=== PATIENT | male | born 1975 | race Caucasian/White ===

== ENCOUNTER 2016-07-26 11:07 | Emergency (ER) | payer OTHER ==
[~2016-07-26] VITALS: Ht 180.3 cm; Wt 94.7 kg
[2016-07-26 11:08] VITALS: TEMP 36.7; Ht 180.3 cm; Wt 94.7 kg
[2016-07-26] MEDS ORDERED: MTR800 PO (11:15)
[2016-07-26] MEDS ORDERED: OXYCODONE/ACETAMINOPHEN 5-325 TAB PO STA (11:28)
--- NOTE | 2016-07-26 11:41 | EMERGENCY ROOM VISIT NOTE ---
History First contact with patient: 11:19 Chief Complaint: KNEEPAIN Stated Complaint: RIGHT KNEE History of Present Illness The patient is a 41 year old male who presents to the Emergency Room via private vehicle with complaints of "right knee". The patient states that earlier this morning around 6:30 AM he was playing basketball when his right knee spontaneously gave out on him and buckled. He points to the right lateral anterior portion of the right knee as a location of the pain of which she rates a 7/10. There is pain with full extension of the knee. He has taken 800 mg of ibuprofen with minimal relief of his pain. He notes that he does have an extensive history of knee injuries on the left but not the right. He denies any right ankle or hip pain. He admits to minimal numbness specifically located in the right knee region. He denies any back pain. He did not injure any other areas when he fell. He denies any other pain. Review of Systems A complete 6-point Review of Systems was discussed with the patient, with pertinent positives and negatives listed in the History of Present Illness. All remaining Review of Systems questions can be considered negative unless otherwise specified. Past Medical/Surgical History Tonsillectomy at age 7, left anterior cruciate ligament reconstructive surgery 2007. Family History Diabetes, heart disease, high blood pressure, kidney disease or stones. Social History Smoking Status: Never Smoker Social History: Patient lives at home with family, and denies alcohol and tobacco use. Current/Historical Medications Scheduled PRN Ibuprofen (Ibuprofen), 800 MG PO DAILY PRN for Pain Oxycodone/Acetaminophen 5MG/325MG (Percocet 5MG/325MG), 1 TAB PO Q6 PRN for Pain Oxycodone/Acetaminophen 5MG/325MG (Percocet 5MG/325MG), 1 TAB PO Q6 PRN for Pain Allergies Coded Allergies: No Known Allergies (Unverified , 07/26/16) Physical Exam Vital Signs Date Time Temp Pulse Resp B/P Pulse Ox O2 Delivery O2 Flow Rate FiO2 07/26/16 13:17 62 18 131/71 97 07/26/16 11:08 36.7 65 18 142/82 96 Room Air Physical Exam VITAL SIGNS - Vital signs and nursing notes were reviewed. Patient is afebrile , blood pressure 142/82, he is not tachycardic and is saturating well on room air 96%. GENERAL -41-year-old male appearing his stated age who is in no acute distress. He is nontoxic in appearance. Communicates well with provider and answers questions appropriately. SKIN - Without rashes. The skin is intact over the right knee. HEAD - NC/AT. EXTREMITIES - No clubbing or peripheral cyanosis. No pretibial edema present. Neurovascularly intact in the right lower extremity. Negative anterior drawer. Negative Grgeg. There is no excessive varus or valgus laxity. There is increased tenderness with full extension of the knee with pinpoint tenderness with extension at the right anterior lateral knee region. Patella is intact and is tracking well. There is no popliteal tenderness. There is no right hip , right thigh, right calf or right toe/foot tenderness. +5/5 strength noted in UE/LE bilaterally. Medical Decision & Procedures ER Provider Diagnostic Interpretation: RIGHT KNEE 3 VIEWS HISTORY: Right knee pain s/p "buckled" while playing sports Right COMPARISON: None. FINDINGS: There is no fracture or dislocation. Small knee effusion. Chronic fragmentation at the tibial tubercle. Cartilage spaces are maintained. IMPRESSION: Small knee effusion. No fractures. Electronically signed by: Winston Dave M.D. 07/26/2016 12:18 PM Dictated Date/Time: 07/26/2016 12:17 PM Medications Administered Medications (Trade) Dose Ordered Sig/Tammi Route Start Time Stop Time Status Last Admin Dose Admin Oxycodone/ Acetaminophen (Percocet 5-325mg Tab) 1 tab NOW STAT PO 07/26/16 11:28 07/26/16 11:30 DC 07/26/16 11:33 1 TAB Medical Decision Patient was seen and evaluated as above. After obtaining a thorough history and physical examination there was concern for right knee injury therefore knee 3 view was obtained the patient was given one tablet of Percocet for his pain after verifying that he would not be driving home. Ice packs were applied. Radiographs were obtained with results as above. I agree with the radiologists findings. Small knee effusion no fracture. He was fitted with a knee immobilizer and crutches and instructed upon use. He is to follow-up with orthopedics by calling the phone number listed. He was written a prescription for Percocet which was sent to [facility], but while the patient was here [facility] called him and told him they did not accept his insurance which was [employer]. I then canceled that prescription by calling [facility] and it was decided to send to the [facility] in [place]. The patient had good fit of the knee mobilizer crutches. I do believe he can follow-up in the outpatient setting with orthopedics. The discussion was had whether or not an MRI should be obtained here and I did not feel that it is warranted in the ER at this time but certainly may be warranted in the outpatient setting with orthopedics. He was educated upon management of the knee. He had questions answered prior to discharge and was discharged home in good condition. After the patient had left, I then received a phone call from the [facility] in [place] who indicated that the prescription did not meet JOSEFA requirements but was unsure why. I then called to cancel this and then handwritten prescription by this point the patient had left. I called him and he was in the nearby facility at the orthopedic office and he indicated that he would stop to pick the prescription up. 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 The 2 electronic prescription's were canceled and he is to take a handwritten prescription. In the evaluation and treatment of this patient, the following differential diagnoses were considered: Patellar Fracture, Tibial Plateau Fracture, Distal Femur Fracture, ACL Injury, PCL Injury, Collateral Ligament Injury, Pes Anserine Bursitis, Maisonneuve Fracture. [place] Drug Monitoring Program Search Results: patient reviewed within database, no issues identified Impression Primary Impression: Right knee pain Departure Information Dispostion Home / Self-Care Condition GOOD Prescriptions Oxycodone/Acetaminophen 5MG/325MG (PERCOCET 5MG/325MG) Tab 1 TAB PO Q6 Y for Pain, #12 TAB For Initial Treatment Prov: Efrain Jain PA-C 07/26/16 Oxycodone/Acetaminophen 5MG/325MG (PERCOCET 5MG/325MG) Tab 1 TAB PO Q6 Y for Pain, #12 TAB For Initial Treatment Prov: Efrain Jain PA-C 07/26/16 Referrals No Doctor, Assigned (PCP) Remy Lynn MD Patient Instructions My [facility] Additional Instructions You have been treated in the Emergency Department for Knee Pain. You have received pain medicine in the emergency department which impairs your ability to operate a vehicle. It is illegal for you to drive after receiving these medicines. You have been prescribed Percocet to be used for pain control. This is a narcotic medication. You cannot drive or consume alcohol while on this medicine. This medicine should only be used for pain that cannot be controlled with exhp-qrv-wskwzvy pain medicines. For pain control, you can use the following sfoc-ctw-xxucyis medicines (if >12 yo): PLEASE DO NOT TAKE TYLENOL WITH THIS! IT ALREADY HAS TYLENOL IN IT! - Regular strength (200 mg/tab) Advil (ibuprofen) 1-2 tabs every 4-6 hours as needed. Do not exceed a dose of 3200 mg per day. If this is a recent injury (<24 hrs), ice can be applied to the area of pain for the first 3 days to help decrease pain and inflammation. Ice massages can be performed by freezing water in a paper cup, peeling back the cup to expose the ice and then massaging over the affected area. You have been provided the number for an Orthopaedic Surgeon. You should call this number as soon as possible to establish a follow-up visit from today's Emergency Department visit. Keep the knee brace in place until cleared by Orthopedics. Use the crutches you have been provided to keep ALL weight off of the knee until weight bearing is tolerable. Return to the Emergency Department if your current symptoms worsen despite treatment course outlined above. CALL [phone] if you are unable to make an appointment and ask for a lining caser. Thank you! Problem Qualifiers Primary Impression: Right knee pain Chronicity: acute Qualified Codes: M25.561 - Pain in right knee
--- NOTE | 2016-07-26 12:20 | DIAGNOSTIC IMAGING REPORT ---
RIGHT KNEE 3 VIEWS HISTORY: Right knee pain s/p "buckled" while playing sports Right COMPARISON: None. FINDINGS: There is no fracture or dislocation. Small knee effusion. Chronic fragmentation at the tibial tubercle. Cartilage spaces are maintained. IMPRESSION: Small knee effusion. No fractures. Electronically signed by: Winston Dave M.D. 07/26/2016 12:18 PM Dictated Date/Time: 07/26/2016 12:17 PM
[2016-07-26] MEDS ORDERED: OXYC-57 PO ×2 (12:43→13:10)
[2016-07-26 13:17] VITALS: BP 131/71; PULSE 62; O2SAT 97
[2016-08-07] MEDS ORDERED: OXYC-57 PO (13:03)
[2016-08-07] MEDS ORDERED: NAPR1TAB9 PO (13:03)
[2016-08-16] MEDS ORDERED: OXYC-57 PO (11:44)
[2016-08-16] MEDS ORDERED: ASPI325T45 PO (11:46)
== END 2016-07-26 13:16 | disposition home or self-care (01) ==
LOC: C.EDB 11:09 → C.EDD 13:16
DX: M25.561 Pain in right knee (principal); W19.XXXA Unspecified fall, initial encounter; Y93.67 Activity, basketball

== ENCOUNTER → 2016-07-31 | Outpatient (CLI) | payer OTHER ==
[~2016-07-31] MED LIST: ASPI325T45 PO; MTR800 PO; NAPR1TAB9 PO; OXYC-57 PO
--- NOTE | 2016-07-31 18:25 | DIAGNOSTIC IMAGING REPORT ---
MRI OF THE RIGHT KNEE CLINICAL HISTORY: Right knee injury. COMPARISON STUDY: Right aggressive the right knee dated 07/26/2016. TECHNIQUE: MRI of the right knee was performed utilizing proton density, T1, and T2-weighted sequences in the axial, sagittal, coronal planes. IV contrast was not administered for this examination. FINDINGS: Menisci: There is an oblique tear identified in the posterior horn of the medial meniscus. The lateral meniscus appears intact. Ligaments: Findings consistent with rupture of the anterior cruciate ligament. The posterior cruciate ligament appears intact. The medial and lateral collateral ligaments appear intact. The popliteus tendon appears preserved. Extensor mechanism: The extensor mechanism is intact. Hoffa's fat pad is normal in appearance. Articular cartilage and bone: The articular cartilage is intact and well maintained all 3 compartments. Bony contusion is identified within the posterior aspect of the medial and lateral tibial plateau. No fracture is identified. Joint effusion: There is a large joint effusion. Soft tissues: Mild intramuscular edema is seen within the vastus lateralis muscle. There is soft tissue edema involving the superficial and deep soft tissues the knee, greatest laterally. The musculature surrounding the knee joint is normal in bulk. IMPRESSION: 1. Findings are consistent with rupture of the anterior cruciate ligament. 2. There is an oblique tear involving the posterior horn of the medial meniscus. 3. The lateral meniscus and posterior cruciate ligament are intact, as are the collateral ligaments and the popliteus tendon. 4. Large joint effusion. 5. Bony contusions are identified in the posterior tibia as above. 6. There is marked soft tissue edema involving the superficial and deep soft tissues of the knee, greatest laterally. Electronically signed by: Clif Nelson M.D. 07/31/2016 6:23 PM Dictated Date/Time: 07/31/2016 6:14 PM
== END | disposition home or self-care (01) ==
LOC: C.MRI 17:21
PROVIDERS: ATTEND Family Medicine
DX: M23.91 Unspecified internal derangement of right knee (principal)

== ENCOUNTER → 2016-08-16 | Day surgery (SDC) | payer OTHER ==
[2016-08-07 13:03] VITALS: Ht 180.3 cm; Wt 95.5 kg
[~2016-08-16] VITALS: Ht 180.3 cm; Wt 95.5 kg
[~2016-08-16] MED LIST changes: +ATROPINE SULFATE 0.1 MG/ML 5ML SYR IV PRN; +BUPIVACAINE 0.5 % 5 MG/1 ML MPF 30ML VIAL ONE; +CEFAZOLIN 2000 MG/60 ML D5W IV SCH; +CEFAZOLIN SOD 1 GM VIAL IV ONE; +CEFAZOLIN SOD 1 GM VIAL ONE; +DEXAMETHASONE SOD INJ 4 MG/ML VIAL ONE; +EpHEDrine SULFATE INJ 50 MG/ML AMP IV PRN; +EpINEphrine INJ 1MG/ML AMP 1 MG/ML AMP ONE; +FENTANYL CITRATE INJ 50 MCG/1 ML 2 ML VIAL ONE; +FLUMAZENIL 0.1 MG/1 ML 10 ML VIAL IV PRN; +GLYCOPYRROLATE INJ 0.2 MG/ML VIAL ONE; +KETOROLAC TROMETHAMINE 30 MG/ML VIAL IV STA; +KETOROLAC TROMETHAMINE 30 MG/ML VIAL ONE; +LABETALOL HCL IV 5 MG/ML 20ML IV PRN; +LACTATED RINGER'S 1000ML 1,000 ML IV SCH; +LIDOCAINE HCL 2% 2 ML VIAL (20MG/ML) ONE; +LIDOCAINE/EPINEPHRINE 1% INJ 50 ML VIAL ONE; +MIDAZOLAM HCL 1 MG/ML 2ML VIAL ONE; -MTR800 PO; +MoRPHine SULFATE 2 MG/ML CARP IV PRN; +MoRPHine SULFATE 4 MG/ML 1 ML CARP\\VIAL IV PRN; +NALOXONE HCL 0.4 MG/1 ML VIAL/CARP IV PRN; +NEOSTIGMINE METHYLSULFATE 5 MG/5 ML SYR ONE; +ONDANSETRON INJ 2 MG/ML 2 ML VIAL IV PRN; +ONDANSETRON INJ 2 MG/ML 2 ML VIAL ONE; +OXYCODONE/ACETAMINOPHEN 5-325 TAB PO PRN; +PROMETHAZINE HCL INJ 12.5 MG in SODIUM CHLORIDE 0.9% 50ML 50 ML IV PRN; +PROPOFOL IV EMULSION 10 MG/ML 20 ML VIAL IV ONE; +ROCURONIUM BROMIDE 10 MG/ML 5 ML VIAL ONE; +ROPIVACAINE 0.5% 5 MG/ML 30 ML VIAL ONE; +SODIUM CHLORIDE 0.9% 1000ML 1,000 ML IV SCH; +SODIUM CHLORIDE 0.9% INJ 10 ML VIAL ONE
--- NOTE | 2016-08-16 06:38 | History & Physical Bridge Note ---
H&P Re-Evaluation Bridge Note: I have examined the patient, reviewed the History & Physical and in the interval since the performance of the History & Physical I have noted the following changes of clinical significance: No changes noted
--- NOTE | 2016-08-16 11:22 | [facility] Post Operative Brief Note ---
Immediate Operative Summary Operative Date Aug 16, 2016. Pre-Operative Diagnosis Right Knee Anterior Cruciate Ligament Tear, Medial Meniscus Tear Post-Operative Diagnosis Same, lateral meniscus tear Procedure(s) Performed Right Knee Arthroscopy, Partial Medial Menisectomy, Partial Lateral Menisectomy , Anterior Cruciate Reconstruction using Hamstring Autograft Surgeon Dr. Loy Barnett Scientific Database Curator Surgeon(s) Jn Fulton PA-C, chandana jason, ms3 Estimated Blood Loss 25 cc Findings medial and lateral meniscus tears, ACL tear Specimens None Anesthesia LMA femoral block Complication(s) None Disposition Recovery Room / PACU
--- NOTE | 2016-08-16 11:42 | [facility] Operative Report ---
Operative Report Operative Date Aug 16, 2016. Pre-Operative Diagnosis Right Knee Anterior Cruciate Ligament Tear, Medial Meniscus Tear Post-Operative Diagnosis Same, lateral meniscus tear Procedure(s) Performed Right Knee Arthroscopy, Partial Medial Menisectomy, Partial Lateral Menisectomy , Anterior Cruciate Reconstruction using Hamstring Autograft Surgeon Dr. Loy Barnett Clay Modeler Surgeon(s) Jn Fulton PA-C, chandana jason, ms3 Estimated Blood Loss 25 cc Findings N/A Specimens None Complication(s) None Disposition Recovery Room / PACU I attest to the content of the Intraoperative Record and any orders documented therein. Any exceptions are noted below.
--- NOTE | 2016-08-16 11:49 | Medical Student: [facility] ---
Immediate Operative Summary Operative Date Aug 16, 2016. Pre-Operative Diagnosis ACL Tear with Possible Medial Meniscal Tear Post-Operative Diagnosis ACL Tear with partial tears of medial and lateral meniscus Procedure(s) Performed ACL repair autograft with hamstring tendons. Partial medial and lateral meniscectomy Surgeon Dr. Barnett Technical Designer Surgeon(s) WILMAR Fulton PA-C Estimated Blood Loss 50cc Findings Complete ACL tear. Partial full thickness tear of medial meniscus. Partial thickness tear of lateral meniscus. Specimens None Complication(s) None Disposition Recovery Room / PACU
--- NOTE | 2016-08-16 11:50 | Discharge Instructions ---
Discharge Instructions Admission Reason for Admission: Right Knee Acl Tear, Medial Meniscus Tear Discharge Discharge Diagnosis / Problem: Right ACL tear, Medial meniscus tear; Lateral meniscus tear Discharge Goals Goal(s): Decrease discomfort, Improve function, Increase independence Activity Recommendations Activity Limitations: as noted below Lifting Limitations: until after follow-up appointment Exercise/Sports Limitations: none May Resume Sexual Activity: after follow-up appointment Shower/Bathe: tomorrow, keep incision dry Driving or Machine Use: No driving until cleared by access control specialist Weightbearing Status: Right non-weightbearing . Instructions / Follow-Up Instructions / Follow-Up The following instructions are a useful guide to questions you may have after your Anterior Cruciate Ligament Reconstruction surgery. If you have any questions contact the office at . ACTIVITY RECOMMENDATIONS: * Heavy manual labor is not permitted until 4-6 months after surgery. * Sports are not permitted until 6-9 months after surgery. * Return to activity is individualized. * DRIVING: Driving is not permitted until 3-4 weeks after surgery at a minimum. Please ask your doctor when it is safe to resume driving. If you have an automatic vehicle and your left leg has been operated on, then you may begin driving as soon as you are comfortable and can drive safely. * BATHING: You may shower or sponge-bathe immediately after surgery. The dressing will need to be covered with a plastic bag or plastic wrap until the dressing is changed on the fourth or fifth day after surgery. Once the dressing has been changed on the fourth or fifth day after surgery, you may shower and get the incision wet. * Wash with regular soap and water. * Do not bathe (submerge the incision), soak, swim or use a hot tub until the incision is completely healed over with normal skin and the doctor has given the OK to proceed. * There is no need to apply any ointments, powders or salves to your incision. * Do not apply alcohol or hydrogen peroxide directly to the incision. Diluted peroxide (50:50 mixture with sterile saline) may be used to clean dried blood from around the incision area. WORK/SCHOOL: * You may return to sedentary work or school when you are feeling comfortable. This is usually 3-7 days after surgery. * Expect increased discomfort with increased activity. Continue to elevate and ice the leg as much as possible. DIET: * Resume previous diet. MEDICATIONS: * You will have a prescription for pain medication and an anti-inflammatory medication after surgery. Use the pain pills for severe pain and the anti-inflammatory for less severe pain. * Once the pain pills have run out, try to use the anti-inflammatory. If this is not effective then contact the office for assistance. * The pain medication may cause nausea, constipation and sleepiness. You should see how they affect you before driving or similar activity. * The anti-inflammatory may cause stomach upset and bleeding. If this occurs, let your doctor know immediately . * Some patients may need blood clot prevention. This can be done with either a pill or a simple shot. Your doctor will advise you on when to begin these medications and how to take them. * Do not take aspirin or other anti-inflammatory products (i.e. Advil or Aleve ) if taking blood thinner medication. * Take a stool softener like Colace or a stimulant like Senokot to prevent constipation. SPECIAL CARE INSTRUCTIONS: The following instructions are a useful guide to questions you may have after your surgery. If you have any questions contact the office at . ICE: * You have the option of an ice cooler, gel packs or ice bags. * If you have an ice cooler, refer to the instructions for that device. * If you do not have an ice cooler, then you will need to use ice bags or gel packs. * Do not apply ice directly to the skin. * Use a thin dressing or stockinet between the skin and ice bag. * Apply ice for 20-30 minutes and repeat every 2-4 hours. This is especially important for the first 7-10 days after surgery. * Once the pain improves, use ice as needed. * The ice cooler can be used continuously. ELEVATION: * Keep your leg elevated at or above the level of your heart as much as possible. * Expect some increased discomfort and swelling if you are standing for any length of time. * When lying down, avoid placing anything under your knee. Rather, prop your leg up by placing several pillows under your heel or calf. DRESSING: * Your dressing will be changed at your first therapy appointment approximately 4-5 days after surgery. * Band-Aids, tape strips or gauze may be applied. You may then change your dressing daily. * Always wash your hands prior to touching the incision area. * Reapply dressing followed by the Eloy wrap or Tubi-coordinator mining products stockinet, ice cooling pad and then the brace. * Once the stitches are removed, you may leave the wound open to air or cover with an Eloy Bandage or Tubi-coordinator mining products stockinet. * If you have been given a white elastic stocking (SNEHA hose), wear as much as possible for the first 1-3 weeks depending on swelling. * Expect some bloody drainage for the first few days after surgery. * Leave the tape strips in place for 5-7 days. * Band-Aids and gauze may be changed daily. CRUTCHES: * You will need to use crutches after surgery. * Until your first doctor's appointment, you must use your crutches at all times when walking and should put no more than 50% of your normal weight on the surgical leg. * After your first doctor's appointment, you may gradually progress to full weight bearing and discontinue crutches as tolerated under the guidance of your therapist. * If you have had a microfracture procedure done, you may be advised to be non- weight bearing for up to 6 weeks. BRACE: * After surgery, you will be placed into a range of motion brace locked with your leg straight. This brace is to be worn at all times when walking (even with the crutches) and sleeping until your first doctors appointment. * The brace may be removed for therapy. * After your first therapy appointment, your therapist will open the brace to allow bending of the knee once your muscles are working better. * Until your first doctor's appointment, you should sleep with your brace locked with your knee fully straight. * If you have chosen to use a functional ACL brace then this brace will be supplied about 2-3 months after your surgery. During that time, you will attend therapy 2- 3 times per week. You will also need to do daily exercises for range of motion and strength as instructed. PROBLEMS/QUESTIONS: * If you have any problems such as severe pain, numbness, tingling or high fevers or if you have any questions, please contact the office at [phone]. * It is not uncommon to have some numbness and tingling after the surgery especially if you have had a nerve block done. This should gradually improve over the first 1- 2 days. If this persists longer or worsens then contact the office. FOLLOW UP VISIT: * If not already scheduled, please call the office at to schedule follow-up appointments for approximately 10 days and one month after surgery followed by monthly appointments thereafter. Current Hospital Diet Patient's current hospital diet: Discharge Diet Recommended Diet: Regular Diet Procedures Procedures Performed: Right Knee Arthroscopy, Partial Medial Menisectomy, Partial Lateral Menisectomy , Anterior Cruciate Reconstruction using Hamstring Autograft Pending Studies Studies pending at discharge: no Medical Emergencies . Who to Call and When: Medical Emergencies: If at any time you feel your situation is an emergency, please call 911 immediately. . Non-Emergent Contact Non-Emergency issues call your: Primary Care Provider Call Non-Emergent contact if: temperature is above 101.5, your pain is not controlled, wound has increased drainage, you have any medication questions . "Provider Documentation" section prepared by Reyes Fulton. VTE Core Measure Inpt VTE Proph given/why not?: Other Anticoagulation (Aspirin 325 mg), T.E.DElinor Ybarra [place] Drug Monitoring Program Search Results: no issues identified
--- NOTE | 2016-08-16 11:53 | Discharge Instructions ---
Discharge Instructions Admission Reason for Admission: Right Knee Acl Tear, Medial Meniscus Tear Discharge Discharge Diagnosis / Problem: Right ACL tear, medial meniscus tear, lateral meniscus tear Discharge Goals Goal(s): Decrease discomfort, Improve function, Increase independence Activity Recommendations Activity Limitations: as noted below Lifting Limitations: until after follow-up appointment Exercise/Sports Limitations: until after follow-up appointment May Resume Sexual Activity: after follow-up appointment Shower/Bathe: tomorrow, keep incision dry Driving or Machine Use: No driving until cleared by orthopaedic specialist Weightbearing Status: Right non-weightbearing . Instructions / Follow-Up Instructions / Follow-Up The following instructions are a useful guide to questions you may have after your Anterior Cruciate Ligament Reconstruction surgery. If you have any questions contact the office at . ACTIVITY RECOMMENDATIONS: * Heavy manual labor is not permitted until 4-6 months after surgery. * Sports are not permitted until 6-9 months after surgery. * Return to activity is individualized. * DRIVING: Driving is not permitted until 3-4 weeks after surgery at a minimum. Please ask your doctor when it is safe to resume driving. If you have an automatic vehicle and your left leg has been operated on, then you may begin driving as soon as you are comfortable and can drive safely. * BATHING: You may shower or sponge-bathe immediately after surgery. The dressing will need to be covered with a plastic bag or plastic wrap until the dressing is changed on the fourth or fifth day after surgery. Once the dressing has been changed on the fourth or fifth day after surgery, you may shower and get the incision wet. * Wash with regular soap and water. * Do not bathe (submerge the incision), soak, swim or use a hot tub until the incision is completely healed over with normal skin and the doctor has given the OK to proceed. * There is no need to apply any ointments, powders or salves to your incision. * Do not apply alcohol or hydrogen peroxide directly to the incision. Diluted peroxide (50:50 mixture with sterile saline) may be used to clean dried blood from around the incision area. WORK/SCHOOL: * You may return to sedentary work or school when you are feeling comfortable. This is usually 3-7 days after surgery. * Expect increased discomfort with increased activity. Continue to elevate and ice the leg as much as possible. DIET: * Resume previous diet. MEDICATIONS: * You will have a prescription for pain medication and an anti-inflammatory medication after surgery. Use the pain pills for severe pain and the anti-inflammatory for less severe pain. * Once the pain pills have run out, try to use the anti-inflammatory. If this is not effective then contact the office for assistance. * The pain medication may cause nausea, constipation and sleepiness. You should see how they affect you before driving or similar activity. * The anti-inflammatory may cause stomach upset and bleeding. If this occurs, let your doctor know immediately . * Some patients may need blood clot prevention. This can be done with either a pill or a simple shot. Your doctor will advise you on when to begin these medications and how to take them. * Do not take aspirin or other anti-inflammatory products (i.e. Advil or Aleve ) if taking blood thinner medication. * Take a stool softener like Colace or a stimulant like Senokot to prevent constipation. SPECIAL CARE INSTRUCTIONS: The following instructions are a useful guide to questions you may have after your surgery. If you have any questions contact the office at . ICE: * You have the option of an ice cooler, gel packs or ice bags. * If you have an ice cooler, refer to the instructions for that device. * If you do not have an ice cooler, then you will need to use ice bags or gel packs. * Do not apply ice directly to the skin. * Use a thin dressing or stockinet between the skin and ice bag. * Apply ice for 20-30 minutes and repeat every 2-4 hours. This is especially important for the first 7-10 days after surgery. * Once the pain improves, use ice as needed. * The ice cooler can be used continuously. ELEVATION: * Keep your leg elevated at or above the level of your heart as much as possible. * Expect some increased discomfort and swelling if you are standing for any length of time. * When lying down, avoid placing anything under your knee. Rather, prop your leg up by placing several pillows under your heel or calf. DRESSING: * Your dressing will be changed at your first therapy appointment approximately 4-5 days after surgery. * Band-Aids, tape strips or gauze may be applied. You may then change your dressing daily. * Always wash your hands prior to touching the incision area. * Reapply dressing followed by the Eloy wrap or Tubi-family caseworker stockinet, ice cooling pad and then the brace. * Once the stitches are removed, you may leave the wound open to air or cover with an Eloy Bandage or Tubi-family caseworker stockinet. * If you have been given a white elastic stocking (SNEHA hose), wear as much as possible for the first 1-3 weeks depending on swelling. * Expect some bloody drainage for the first few days after surgery. * Leave the tape strips in place for 5-7 days. * Band-Aids and gauze may be changed daily. CRUTCHES: * You will need to use crutches after surgery. * Until your first doctor's appointment, you must use your crutches at all times when walking and should put no more than 50% of your normal weight on the surgical leg. * After your first doctor's appointment, you may gradually progress to full weight bearing and discontinue crutches as tolerated under the guidance of your therapist. * If you have had a microfracture procedure done, you may be advised to be non- weight bearing for up to 6 weeks. BRACE: * After surgery, you will be placed into a range of motion brace locked with your leg straight. This brace is to be worn at all times when walking (even with the crutches) and sleeping until your first doctors appointment. * The brace may be removed for therapy. * After your first therapy appointment, your therapist will open the brace to allow bending of the knee once your muscles are working better. * Until your first doctor's appointment, you should sleep with your brace locked with your knee fully straight. * If you have chosen to use a functional ACL brace then this brace will be supplied about 2-3 months after your surgery. During that time, you will attend therapy 2- 3 times per week. You will also need to do daily exercises for range of motion and strength as instructed. PROBLEMS/QUESTIONS: * If you have any problems such as severe pain, numbness, tingling or high fevers or if you have any questions, please contact the office at [phone]. * It is not uncommon to have some numbness and tingling after the surgery especially if you have had a nerve block done. This should gradually improve over the first 1- 2 days. If this persists longer or worsens then contact the office. FOLLOW UP VISIT: * If not already scheduled, please call the office at to schedule follow-up appointments for approximately 10 days and one month after surgery followed by monthly appointments thereafter. Current Hospital Diet Patient's current hospital diet: Discharge Diet Recommended Diet: Regular Diet Procedures Procedures Performed: Right Knee Arthroscopy, Partial Medial Menisectomy, Partial Lateral Menisectomy , Anterior Cruciate Reconstruction using Hamstring Autograft Pending Studies Studies pending at discharge: no Medical Emergencies . Who to Call and When: Medical Emergencies: If at any time you feel your situation is an emergency, please call 911 immediately. . Non-Emergent Contact Non-Emergency issues call your: Primary Care Provider Call Non-Emergent contact if: temperature is above 101.5, your pain is not controlled, wound has increased drainage, you have any medication questions . "Provider Documentation" section prepared by Reyes Fulton. VTE Core Measure Inpt VTE Proph given/why not?: Other Anticoagulation (Aspirin 325 mg), T.E.D. Stockings
[2016-08-16] MEDS: HYDROmorphone INJ 1 MG/ML SYR IV PRN ×7 (11:56→12:27)
[2016-08-16 12:46] VITALS: TEMP 37.2
[2016-08-16 13:26] VITALS: BP 116/72; PULSE 86; O2SAT 96
--- NOTE | 2016-08-16 13:30 | Anesthesia Progress Nt - [facility] ---
Anesthesia Post Op Note Date & Time Aug 16, 2016 at 13:30 Vital Signs Pain Intensity: 4.0 Vital Signs Past 12 Hours Date Time Temp Pulse Resp B/P Pulse Ox O2 Delivery O2 Flow Rate FiO2 08/16/16 13:26 86 16 116/72 96 Room Air 08/16/16 12:46 37.2 83 16 128/76 94 Room Air 08/16/16 12:38 147/86 08/16/16 12:36 83 13 08/16/16 12:36 83 13 99 08/16/16 12:33 148/87 08/16/16 12:31 85 27 92 08/16/16 12:31 85 27 08/16/16 12:31 37.1 94 Room Air 08/16/16 12:30 85 16 94 08/16/16 12:30 85 16 08/16/16 12:28 144/87 08/16/16 12:25 88 32 08/16/16 12:25 87 32 92 08/16/16 12:23 157/90 08/16/16 12:20 82 30 08/16/16 12:20 81 30 99 08/16/16 12:18 147/86 08/16/16 12:15 80 26 100 08/16/16 12:15 80 26 08/16/16 12:13 147/87 08/16/16 12:10 73 20 100 08/16/16 12:10 74 20 08/16/16 12:08 146/93 08/16/16 12:05 76 25 100 08/16/16 12:05 76 25 08/16/16 12:03 145/88 08/16/16 12:00 78 23 08/16/16 12:00 77 23 100 08/16/16 11:58 148/89 08/16/16 11:55 79 15 100 08/16/16 11:55 79 15 08/16/16 11:53 152/89 08/16/16 11:50 82 18 99 08/16/16 11:50 83 18 08/16/16 11:48 152/90 08/16/16 11:45 69 17 08/16/16 11:45 69 17 100 08/16/16 11:43 147/88 08/16/16 11:40 71 21 08/16/16 11:40 71 21 100 08/16/16 11:38 150/79 08/16/16 11:37 37.6 78 16 138/77 97 Mask 6 08/16/16 11:35 76 138/77 96 08/16/16 11:35 76 08/16/16 07:50 64 0 08/16/16 07:50 0 08/16/16 07:49 72 20 100 08/16/16 07:49 68 20 08/16/16 07:48 123/73 08/16/16 07:44 76 24 08/16/16 07:44 77 24 98 08/16/16 07:43 132/77 08/16/16 07:41 66 14 144/77 97 Mask 3 08/16/16 07:39 67 14 08/16/16 07:39 67 14 144/77 98 08/16/16 07:34 61 08/16/16 07:29 68 08/16/16 07:24 64 08/16/16 07:19 65 08/16/16 07:14 65 08/16/16 07:09 67 08/16/16 07:04 70 08/16/16 06:59 58 08/16/16 06:31 36.5 65 20 136/88 98 Room Air Notes Mental Status: alert / awake / arousable, participated in evaluation Pt Amnestic to Procedure: Yes Nausea / Vomiting: adequately controlled Pain: adequately controlled Airway Patency, RR, SpO2: stable & adequate BP & HR: stable & adequate Hydration State: stable & adequate Anesthetic Complications: no major complications apparent
--- NOTE | 2016-08-16 23:56 | OPERATIVE REPORT ---
DATE OF OPERATION: 08/16/2016 PREOPERATIVE DIAGNOSES: Right anterior cruciate ligament tear, medial meniscus tear. POSTOPERATIVE DIAGNOSES: Same plus lateral meniscus tear. PROCEDURE: Partial medial and lateral meniscectomy, ACL reconstruction with hamstring autograft. SURGEON: Dr. Barnett. SUPERVISOR CHANNEL PROCESS: Jn Fulton PA-C. SECOND SUPERVISOR CHANNEL PROCESS: Jesus Dawson. No resident or fellow available. 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 ANESTHESIA: Laryngeal mask with femoral nerve block. 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 He is status post contralateral successful ACL reconstruction. His options were discussed and he elected to proceed with operative intervention. PROCEDURE IN DETAIL: Informed consent was obtained. The patient was identified as Sona Juarez, he identified the operative site as the right knee, I marked it with my initials. A preop surgical timeout was performed. A preop dose of IV antibiotics was given. He was taken to the operating room, positioned supine on the operating room table. A laryngeal mask anesthetic and femoral nerve block were given. A tourniquet was applied to the right thigh. The right leg was prepped and draped in usual sterile fashion. Exam under anesthesia revealed 5 degrees hyperextension and gravity-assisted flexion to 120 with a moderate effusion. The knee was stable except for 2+ positive Gregg and a grade 2 pivot shift. Gregg in the left knee was mildly positive with a softer endpoint and he had a grade 1 pivot shift in the left knee. That knee was otherwise stable and his range over there was 3/0/140. DVT prophylaxis intraoperatively with foot pumps, postoperatively with aspirin and early mobility. A lateral post was used for stressing the knee. Inferolateral viewing portal, superolateral outflow portal, and inferomedial working portal were established. Diagnostic arthroscopy was performed. There was no pathology in the suprapatellar pouch. There was some fissuring of the patella but otherwise normal articular surfaces of the trochlea and patella. The medial and lateral gutters and popliteal hiatus were normal. The retropatellar fat pad was debrided. There was an obvious tear of the ACL. PCL normal. Medial compartment showed normal articular surfaces. There was a longitudinal tear of the medial meniscus, about 1.5 cm in length. The distance between the tear and the rim was over 5 mm. The tear also had a little bit of softness and complexity to it internally and I elected to proceed with partial meniscectomy, removing about 15-20% of the meniscus with basket forceps and motorized shaver. The lateral compartment was examined, cartilage was normal. There was a radial tear of the anterior horn of the meniscus, which was debrided with basket forceps and a shaver. There was a partial-thickness longitudinal tear posterior to the hiatus of about 1 to 1.5 cm in length. This was debrided/stimulated with a rasp and shaver and left in situ. Its posteromedial and lateral compartments were otherwise unremarkable. The limb was exsanguinated with the Esmarch, tourniquet inflated to 225 mmHg. An incision was made over the proximal medial tibia, about 6 cm in length. Full-thickness flaps were created. The sartorial fascia was identified and opened. The semitendinosis and gracilis tendons were sequentially identified, freed from their accessory attachments, and harvested. They were dissected out distally and removed. The tourniquet was then let down after about 15 minutes of inflation. The graft was prepared on the back table, freed of muscle tissue. The double graft diameter was 8, perhaps a snug 7.5. I elected to proceed with GraftLink technique. Both of the GraftLink apparatuses were placed on the graft table. The tendon was trimmed to 28 cm, placed appropriately through the loops, secured with a whipstitch on the open end through all 4 tendons. The tendon was nestled into the crotch distally, cerclage sutures were placed at 20 and 10 distally and 20 proximally. Markings on the graft at 22.5 mm proximally and 20 and 25 mm distally were made. Graft diameter was 11 distally, 10.5 proximal. It was placed under 20 foot-pounds of tension and kept moist with a sponge. Attention was turned back to the knee. The ACL was debrided. Soft tissue with intercondylar notch was removed. The lateral bifurcate and intercondylar ridges were identified. Accessory medial portal was created. A commercial drone pilot hole was made a millimeter behind the lateral bifurcate ridge, about 8 mm anterior to the posterior cartilage margin. Attention was then turned to the tibia where based upon anatomical landmarks the center of the footprint was identified and marked. The guide was set for 55 degrees and a pin was drilled into place beginning just anterior to the MCL. This was in good position and was overreamed with a 10 and then an 11 mm reamer, taking care to protect the cartilage and anterior horn of the lateral meniscus. The extraarticular entrance of the tunnel was cleaned and the intraarticular entrance was beveled with a rasp. A plug was inserted. The knee was insufflated with fluid, and then through the accessory medial portal, a guidepin was introduced carefully past the medial condyle and into the aforementioned commercial drone pilot hole on the femur. The bone width was 40, the pin was passed through and through, a socket of 25 mm in depth was made. The bony debris was flushed out of the knee. This was a 10 mm femoral socket which was dilated to a 10.5. A shuttling suture was passed and brought out the tibia. The graft was shuttled into place. The button was flipped and confirmed with a fluoroscopic image. The graft was then toggled into place to the 22.5 mary on the femur. There was no graft impingement, PCL impingement, roof or wall impingement. The tibial tunnel showed 22.5 mm of graft within it as well and full extension was achieved without impingement. The knee was then placed into full hyperextension of 5 degrees. A 14 mm button was fixed to the all suture TightRope and the free ends of the suture from the whipstitch and were passed through the button as well. The button was positioned and the TightRope was tightened and then the sutures were then tied. The TightRope stitches were tied as well, throws and posts were alternated. Back inside the knee, there was excellent tension in the graft with no impingement. The knee was then held in full extension again and the femoral side was toggled for additional tightening. I then went ahead and removed all the extraneous stitches. The portals were closed with interrupted nylon sutures, the anterior incision with 2-0 Vicryl and a Monocryl subcuticular stitch. The leg was cleaned with wet and dry sponges. The remaining part of the operation again was done with the tourniquet up and total tourniquet time was approximately 90 minutes. Tourniquet was let down prior to wound closure. There was no significant bleeding. Irrigation was performed. Gregg was negative. Pivot shift was eliminated. Once the incisions were closed, soft sterile dressing was applied, full length Eloy wrap, and a hinged brace locked in extension. The patient was awakened from anesthesia without difficulty and taken to recovery in stable condition. There were no specimens or complications. Counts were correct at the end of case. Blood loss was approximately 25 mL. At the conclusion of the operation, I spoke to the patient's family and informed them of my findings. Postoperative instructions were given. He will be rehabilitated according to the ACL rehab protocol. At the beginning of the operation, a hemarthrosis was evacuated from the knee. Aspirin for DVT prophylaxis. I attest to the content of the Intraoperative Record and any orders documented therein. Any exceptio ns are noted below.
== END | disposition home or self-care (01) ==
LOC: X.SURG 06:11
PROVIDERS: ATTEND Physical Medicine & Rehabilitation Sports Medicine
DX: S83.511A Sprain of anterior cruciate ligament of right knee, initial encounter (principal); S83.241A Other tear of medial meniscus, current injury, right knee, initial encounter; S83.281A Other tear of lateral meniscus, current injury, right knee, initial encounter; Y93.67 Activity, basketball; Y92.89 Other specified places as the place of occurrence of the external cause; Y99.8 Other external cause status; Z98.890 Other specified postprocedural states

== ENCOUNTER → 2016-08-27 | Outpatient (CLI) | payer OTHER ==
[~2016-08-27] MED LIST changes: -ATROPINE SULFATE 0.1 MG/ML 5ML SYR IV PRN; -BUPIVACAINE 0.5 % 5 MG/1 ML MPF 30ML VIAL ONE; -CEFAZOLIN 2000 MG/60 ML D5W IV SCH; -CEFAZOLIN SOD 1 GM VIAL IV ONE; -CEFAZOLIN SOD 1 GM VIAL ONE; -DEXAMETHASONE SOD INJ 4 MG/ML VIAL ONE; -EpHEDrine SULFATE INJ 50 MG/ML AMP IV PRN; -EpINEphrine INJ 1MG/ML AMP 1 MG/ML AMP ONE; -FENTANYL CITRATE INJ 50 MCG/1 ML 2 ML VIAL ONE; -FLUMAZENIL 0.1 MG/1 ML 10 ML VIAL IV PRN; -GLYCOPYRROLATE INJ 0.2 MG/ML VIAL ONE; -KETOROLAC TROMETHAMINE 30 MG/ML VIAL IV STA; -KETOROLAC TROMETHAMINE 30 MG/ML VIAL ONE; -LABETALOL HCL IV 5 MG/ML 20ML IV PRN; -LACTATED RINGER'S 1000ML 1,000 ML IV SCH; -LIDOCAINE HCL 2% 2 ML VIAL (20MG/ML) ONE; -LIDOCAINE/EPINEPHRINE 1% INJ 50 ML VIAL ONE; -MIDAZOLAM HCL 1 MG/ML 2ML VIAL ONE; -MoRPHine SULFATE 2 MG/ML CARP IV PRN; -MoRPHine SULFATE 4 MG/ML 1 ML CARP\\VIAL IV PRN; -NALOXONE HCL 0.4 MG/1 ML VIAL/CARP IV PRN; -NAPR1TAB9 PO; -NEOSTIGMINE METHYLSULFATE 5 MG/5 ML SYR ONE; -ONDANSETRON INJ 2 MG/ML 2 ML VIAL IV PRN; -ONDANSETRON INJ 2 MG/ML 2 ML VIAL ONE; -OXYCODONE/ACETAMINOPHEN 5-325 TAB PO PRN; -PROMETHAZINE HCL INJ 12.5 MG in SODIUM CHLORIDE 0.9% 50ML 50 ML IV PRN; -PROPOFOL IV EMULSION 10 MG/ML 20 ML VIAL IV ONE; -ROCURONIUM BROMIDE 10 MG/ML 5 ML VIAL ONE; -ROPIVACAINE 0.5% 5 MG/ML 30 ML VIAL ONE; -SODIUM CHLORIDE 0.9% 1000ML 1,000 ML IV SCH; -SODIUM CHLORIDE 0.9% INJ 10 ML VIAL ONE
== END | disposition home or self-care (01) ==
LOC: C.RDSM 14:10
PROVIDERS: ATTEND Physical Medicine & Rehabilitation Sports Medicine
DX: S83.511A Sprain of anterior cruciate ligament of right knee, initial encounter (principal); X58.XXXA Exposure to other specified factors, initial encounter